=== PATIENT | female | born 1960 | race Caucasian/White ===

== ENCOUNTER 2023-02-09 17:16 | Inpatient (IN) | payer OTHER ==
[~2023-02-09] VITALS: Ht 154.9 cm; Wt 65.6 kg
[2023-02-09] MEDS ORDERED: SODIUM CHLORIDE 0.9% 1000ML 1,000 ML ONE ×3 (18:14→23:00)
[2023-02-09] MEDS ORDERED: SODIUM CHLORIDE 0.9% 1000ML 2,520 ML IV SCH (18:15)
[2023-02-09 18:31] LABS: BASOPHILS % 0.2 % (0.0-1.0); HEMATOCRIT 31.6 % (34.2-44.1); HEMOGLOBIN 10.7 g/dL (12.0-16.0); LYMPHOCYTES # (AUTO) 0.6 (1.0-3.2); LYMPHOCYTES % 6.9 % (18.0-39.1); MEAN CORPUSCULAR HEMOGLOBIN 22.9 pg (28-32); MEAN CORPUSCULAR HGB CONC 33.9 g/dL (31-35); MEAN CORPUSCULAR VOLUME 67.7 fL (81-99); MONOCYTES # (AUTO) 0.2 (0.2-0.8); MONOCYTES % 2.3 % (4.4-11.3); NEUTROPHILS # (AUTO) 7.9 (2.1-6.9); NEUTROPHILS % 89.9 % (38.7-80.0); PLATELET COUNT 128 x10e3/uL (140-360); RED BLOOD COUNT 4.67 x10e6/uL (3.6-5.1); RED CELL DISTRIBUTION WIDTH 13.4 % (11.7-14.4)
[2023-02-09] MEDS ORDERED: CEFTRIAXONE 1 GM VIAL ONE (18:37)
[2023-02-09] MEDS: CEFTRIAXONE 1 GM VIAL IV SCH (18:40)
[2023-02-09 18:41] LABS: INR 1.02; PROTHROMBIN TIME 13.9 seconds (11.9-14.5)
[2023-02-09 18:42] LABS: PARTIAL THROMBOPLASTIN TIME 37.4 seconds (23.8-35.5)
[2023-02-09 18:51] LABS: ALBUMIN/GLOBULIN RATIO 0.8 (0.8-2.0); ANION GAP 23.9 mmol/L (8-16); CALCIUM 8.5 mg/dL (8.4-10.2); CREATININE, SERUM 5.27 mg/dL (0.57-1.11); POTASSIUM 3.9 mmol/L (3.5-5.1)
[2023-02-09 20:29] LABS: CLARITY,URINE CLOUDY (CLEAR); COLOR,URINE YELLOW (YELLOW); KETONES,URINE NEGATIVE (NEGATIVE); LEUKOCYTE ESTERASE ,URINE NEGATIVE (NEGATIVE); NITRITE,URINE NEGATIVE (NEGATIVE); PROTEIN,URINE DIPSTICK 2+ (NEGATIVE); URINE UROBILINOGEN 0.2 mg/dL (0.2 - 1)
[2023-02-09 20:48] LABS: WBC,URINE (MAN) 21-50 /HPF (0-5)
[2023-02-09 20:49] LABS: BACTERIA,URINE MANY /HPF; EPITHELIAL CELLS,URINE MANY /LPF; TRANSITIONAL EPI CELLS,URINE MANY
[2023-02-09 20:50] LABS: AMORPHOUS SEDIMENT,URINE MANY (FEW)
[2023-02-09] MEDS ORDERED: ONDANSETRON HCL INJ 2MG/ML 2ML 2 MG/ML VIAL IV PRN (21:45)
[2023-02-09] MEDS ORDERED: ACETAMINOPHEN 325 MG TAB PO ONE (22:00)
[2023-02-09] MEDS: SODIUM CHLORIDE 0.9% 1000ML 1,000 ML IV SCH (22:26)
[2023-02-09 23:42] VITALS: BP 93/55; PULSE 81; RESP 21; TEMP 97.8; O2SAT 98
[2023-02-10] VITALS (10 sets, daily range): BP systolic 90–117; BP diastolic 50–66; PULSE 81–115; RESP 17–22; TEMP 97.8–103.1; O2SAT 88–98
[2023-02-10] MEDS ORDERED: PROGESTERONE100 MG PO (00:54)
[2023-02-10] MEDS ORDERED: DULOXETINE HCL60 MG PO (00:54)
[2023-02-10] MEDS ORDERED: LORATADINE10 MG PO (00:54)
[2023-02-10] MEDS ORDERED: DOTTI1 EACH TP (00:54)
[2023-02-10] MEDS: ACETAMINOPHEN 325 MG TAB PO PRN ×3 (04:28→23:54)
[2023-02-10] MEDS: SODIUM CHLORIDE 0.9% 1000ML 1,000 ML IV SCH ×2 (04:55→15:30)
[2023-02-10 06:13] LABS: BASOPHILS % 0.3 % (0.0-1.0); HEMATOCRIT 27.5 % (34.2-44.1); HEMOGLOBIN 9.2 g/dL (12.0-16.0); LYMPHOCYTES # (AUTO) 0.4 (1.0-3.2); LYMPHOCYTES % 6.2 % (18.0-39.1); MEAN CORPUSCULAR HEMOGLOBIN 22.9 pg (28-32); MEAN CORPUSCULAR HGB CONC 33.5 g/dL (31-35); MEAN CORPUSCULAR VOLUME 68.4 fL (81-99); MONOCYTES # (AUTO) 0.2 (0.2-0.8); MONOCYTES % 2.6 % (4.4-11.3); NEUTROPHILS # (AUTO) 6.3 (2.1-6.9); NEUTROPHILS % 90.5 % (38.7-80.0); PLATELET COUNT 114 x10e3/uL (140-360); RED BLOOD COUNT 4.02 x10e6/uL (3.6-5.1); RED CELL DISTRIBUTION WIDTH 13.8 % (11.7-14.4)
[2023-02-10 07:07] LABS: ALBUMIN 2.4 g/dL (3.5-5.0); ALBUMIN/GLOBULIN RATIO 0.8 (0.8-2.0); ANION GAP 17.8 mmol/L (8-16); CALCIUM 7.5 mg/dL (8.4-10.2); CREATININE, SERUM 4.09 mg/dL (0.57-1.11); POTASSIUM 3.8 mmol/L (3.5-5.1)
[2023-02-10 09:43] LABS: LYMPHOCYTES % (MANUAL) 4 % (19-48); MONOCYTES % (MANUAL) 2 % (3.4-9.0); MYELOCYTES % (MANUAL) 1 % (0-0); NEUTROPHILS % (MANUAL) 93 % (40-74); PLATELET ESTIMATE MARKEDLY DECREASED; PLATELET MORPHOLOGY COMMENT NORMAL
[2023-02-10 09:44] LABS: RBC MORPHOLOGY COMMENT NORMAL
[2023-02-10] MEDS ORDERED: MIDODRINE 2.5 MG TAB PO SCH (12:00)
[2023-02-10] MEDS ORDERED: MIDODRINE 2.5 MG TAB PO PRN (12:15)
[2023-02-10] MEDS: CEFTRIAXONE 1 GM VIAL IV SCH (17:27)
[2023-02-10] MEDS: LACTATED RINGER'S 1,000 ML INJ SCH (18:05)
[2023-02-10] MEDS: HEPARIN SOD (PORCINE) 5,000 UNIT/ML VIAL SC SCH (22:03)
[2023-02-11] VITALS (7 sets, daily range): BP systolic 94–157; BP diastolic 57–72; PULSE 81–119; RESP 17–22; TEMP 98–103.3; O2SAT 91–100
[2023-02-11 06:11] LABS: BASOPHILS # (AUTO) 0.1 (0.0-0.1); BASOPHILS % 1.4 % (0.0-1.0); HEMATOCRIT 29.3 % (34.2-44.1); HEMOGLOBIN 9.5 g/dL (12.0-16.0); LYMPHOCYTES # (AUTO) 0.6 (1.0-3.2); MEAN CORPUSCULAR HEMOGLOBIN 22.9 pg (28-32); MEAN CORPUSCULAR HGB CONC 32.4 g/dL (31-35); MEAN CORPUSCULAR VOLUME 70.8 fL (81-99); MONOCYTES # (AUTO) 0.1 (0.2-0.8); MONOCYTES % 2.8 % (4.4-11.3); NEUTROPHILS # (AUTO) 4.2 (2.1-6.9); NEUTROPHILS % 83.4 % (38.7-80.0); PLATELET COUNT 118 x10e3/uL (140-360); RED BLOOD COUNT 4.14 x10e6/uL (3.6-5.1); RED CELL DISTRIBUTION WIDTH 14.1 % (11.7-14.4)
[2023-02-11 06:23] LABS: ANION GAP 17.6 mmol/L (8-16); CALCIUM 7.9 mg/dL (8.4-10.2); CREATININE, SERUM 2.06 mg/dL (0.57-1.11); POTASSIUM 3.6 mmol/L (3.5-5.1)
[2023-02-11] MEDS: LACTATED RINGER'S 1,000 ML INJ SCH ×2 (06:35→09:20)
[2023-02-11] MEDS: HEPARIN SOD (PORCINE) 5,000 UNIT/ML VIAL SC SCH ×2 (09:27→20:55)
[2023-02-11] MEDS ORDERED: FUROSEMIDE INJ 10 MG/ML 2 ML VIAL IV ONE (11:30)
[2023-02-11] MEDS: ACETAMINOPHEN 325 MG TAB PO PRN ×2 (11:35→20:56)
[2023-02-11] MEDS: PANTOPRAZOLE SOD 40 MG TABEC PO SCH (12:32)
[2023-02-11] MEDS ORDERED: ONDANSETRON HCL 4 MG ORAL DISINTEGRATING TAB PO PRN (14:00)
[2023-02-12] VITALS (8 sets, daily range): BP systolic 97–138; BP diastolic 57–69; PULSE 89–115; RESP 16–22; TEMP 98.2–103.1; O2SAT 95–99
[2023-02-12] MEDS: ACETAMINOPHEN 325 MG TAB PO PRN ×2 (04:29→15:25)
[2023-02-12 05:58] LABS: ANION GAP 16.9 mmol/L (8-16); CALCIUM 8.4 mg/dL (8.4-10.2); CREATININE, SERUM 1.43 mg/dL (0.57-1.11); POTASSIUM 3.9 mmol/L (3.5-5.1)
[2023-02-12] MEDS: PANTOPRAZOLE SOD 40 MG TABEC PO SCH (08:39)
[2023-02-12] MEDS: HEPARIN SOD (PORCINE) 5,000 UNIT/ML VIAL SC SCH ×2 (09:56→20:35)
[2023-02-12] MEDS: SODIUM BICARBONATE 650 MG TAB PO SCH (20:30)
[2023-02-13] VITALS (7 sets, daily range): BP systolic 111–144; BP diastolic 67–88; PULSE 92–106; RESP 16–18; TEMP 98.6–102.9; O2SAT 95–99
[2023-02-13] MEDS: ACETAMINOPHEN 325 MG TAB PO PRN ×2 (00:21→21:43)
[2023-02-13 01:52] LABS: CLARITY,URINE CLEAR (CLEAR); COLOR,URINE YELLOW (YELLOW); KETONES,URINE NEGATIVE (NEGATIVE); LEUKOCYTE ESTERASE ,URINE NEGATIVE (NEGATIVE); NITRITE,URINE NEGATIVE (NEGATIVE); PROTEIN,URINE DIPSTICK 2+ (NEGATIVE); URINE UROBILINOGEN 1 mg/dL (0.2 - 1)
[2023-02-13 01:58] LABS: AMORPHOUS SEDIMENT,URINE MODERATE (FEW); BACTERIA,URINE FEW /HPF; EPITHELIAL CELLS,URINE RARE /LPF; WBC,URINE (MAN) 0-5 /HPF (0-5)
[2023-02-13 06:13] LABS: BASOPHILS % 0.8 % (0.0-1.0); EOSINOPHILS % 0.4 % (0.0-6.0); HEMATOCRIT 23.3 % (34.2-44.1); LYMPHOCYTES # (AUTO) 0.8 (1.0-3.2); LYMPHOCYTES % 16.1 % (18.0-39.1); MEAN CORPUSCULAR HEMOGLOBIN 22.8 pg (28-32); MEAN CORPUSCULAR HGB CONC 34.3 g/dL (31-35); MEAN CORPUSCULAR VOLUME 66.4 fL (81-99); MONOCYTES # (AUTO) 0.1 (0.2-0.8); MONOCYTES % 2.5 % (4.4-11.3); NEUTROPHILS # (AUTO) 4.2 (2.1-6.9); NEUTROPHILS % 79.8 % (38.7-80.0); PLATELET COUNT 115 x10e3/uL (140-360); RED BLOOD COUNT 3.51 x10e6/uL (3.6-5.1)
[2023-02-13 06:39] LABS: ALBUMIN/GLOBULIN RATIO 0.6 (0.8-2.0); ANION GAP 12.7 mmol/L (8-16); CALCIUM 8.2 mg/dL (8.4-10.2); CREATININE, SERUM 1.43 mg/dL (0.57-1.11)
[2023-02-13 06:47] LABS: POTASSIUM 2.7 mmol/L (3.5-5.1)
[2023-02-13] MEDS: HEPARIN SOD (PORCINE) 5,000 UNIT/ML VIAL SC SCH ×2 (08:59→21:49)
[2023-02-13] MEDS: PANTOPRAZOLE SOD 40 MG TABEC PO SCH (08:59)
[2023-02-13] MEDS: SODIUM BICARBONATE 650 MG TAB PO SCH ×2 (09:00→15:43)
[2023-02-13] MEDS ORDERED: POTASSIUM CHLORIDE 20 MEQ TAB CR PO ONE (09:30)
[2023-02-13 09:33] LABS: LYMPHOCYTES % (MANUAL) 16 % (19-48); MONOCYTES % (MANUAL) 1 % (3.4-9.0); NEUTROPHILS % (MANUAL) 83 % (40-74); PLATELET ESTIMATE SLIGHTLY DECREASED; PLATELET MORPHOLOGY COMMENT NORMAL; RBC MORPHOLOGY COMMENT NORMAL
[2023-02-13 17:35] LABS: ANION GAP 14.1 mmol/L (8-16); CALCIUM 8.2 mg/dL (8.4-10.2); CREATININE, SERUM 1.36 mg/dL (0.57-1.11); POTASSIUM 3.1 mmol/L (3.5-5.1)
[2023-02-13] MEDS ORDERED: POTASSIUM CHLORIDE 10MEQ EA PO ONE (23:15)
[2023-02-13] MEDS ORDERED: TRAZODONE HCL 50 MG TAB PO PRN (23:15)
[2023-02-14 00:53] VITALS: BP 112/71; PULSE 88; RESP 17; TEMP 98.6; O2SAT 96
[2023-02-14 05:14] VITALS: BP 128/73; PULSE 79; RESP 18; TEMP 98.2; O2SAT 100
[2023-02-14 06:07] LABS: ALBUMIN 2.2 g/dL (3.5-5.0); ALBUMIN/GLOBULIN RATIO 0.6 (0.8-2.0); ANION GAP 13.5 mmol/L (8-16); CALCIUM 8.5 mg/dL (8.4-10.2); CREATININE, SERUM 1.27 mg/dL (0.57-1.11); POTASSIUM 3.5 mmol/L (3.5-5.1)
[2023-02-14 07:49] VITALS: BP 124/61; PULSE 96; RESP 20; TEMP 99; O2SAT 94
[2023-02-14] MEDS: SODIUM BICARBONATE 650 MG TAB PO SCH (08:12)
[2023-02-14] MEDS: PANTOPRAZOLE SOD 40 MG TABEC PO SCH (08:13)
[2023-02-14] MEDS: HEPARIN SOD (PORCINE) 5,000 UNIT/ML VIAL SC SCH (08:15)
[2023-02-14 08:58] VITALS: BP 124/61; PULSE 96; RESP 20; TEMP 99; O2SAT 94
[2023-02-14 11:13] VITALS: BP 123/57; PULSE 95; RESP 17; TEMP 99.4; O2SAT 95
[2023-02-14 15:23] VITALS: BP 113/63; PULSE 94; RESP 18; O2SAT 96
== END 2023-02-14 15:50 | disposition home or self-care (01) | DRG 683 ==
LOC: ER 17:41 → ERHOLD 21:37 → MED/SURG2 23:13 → OBSVTOIN 02-10 09:30
PROVIDERS: ADMIT Internal Medicine; ATTEND Internal Medicine
DX: N17.9 Acute kidney failure, unspecified (principal); E87.1 Hypo-osmolality and hyponatremia; M62.82 Rhabdomyolysis; E87.20 Acidosis, unspecified; B34.9 Viral infection, unspecified; E86.0 Dehydration; I95.9 Hypotension, unspecified; R79.89 Other specified abnormal findings of blood chemistry; M19.90 Unspecified osteoarthritis, unspecified site; M79.7 Fibromyalgia; R53.1 Weakness; K76.9 Liver disease, unspecified; R31.29 Other microscopic hematuria; R80.9 Proteinuria, unspecified; M06.9 Rheumatoid arthritis, unspecified; I10 Essential (primary) hypertension; Z20.822 Contact with and (suspected) exposure to COVID-19
CPT/HCPCS: 36415; 71045; 74176; 76770; 80048; 80053; 81001; 82550; 83605; 83735; 85025; 85610; 85730; 87040; 87086; 87400; 93005; 96361; 99285; G0378; J0696; J1644; J1940; J2543; J7030